=== PATIENT | male | born 1950 | race Caucasian/White ===

== ENCOUNTER 2017-05-06 11:31 | Emergency (ER) | payer MEDICARE, BC ==
[2017-05-06] MEDS ORDERED: KETOROLAC TROMETHAMINE 60 MG/2 ML VIAL IM ONE ×2 (12:28→12:33)
[2017-05-06] MEDS ORDERED: ORPHENADRINE CITRATE 30 MG/ML VIAL IM ONE (12:28)
--- NOTE | 2017-05-06 12:29 | ERNOTE ---
Back Pain ER HPI Date of Service: 05/06/17 Presenting Symptoms: injury/pain to back Time Seen by Provider: 05/06/17 12:14 Source: patient, family, RN notes reviewed Exam Limitations: no limitations Immunizations: IMMUNIZATION HX Immunizations Up to Date Yes History of Influenza Vaccine No Hx Pneumococcal Vaccination No Allergies/Adverse Reactions: Allergies No Known Allergies Allergy (Verified 05/06/17 12:02) Home Medications: HOME MEDICATIONS Aspirin 81 mg PO DAILY 05/06/17 [Last Taken Unknown] Atorvastatin Calcium [Lipitor] 40 mg PO HS 05/06/17 [Last Taken Unknown] Cyclobenzaprine HCl [Flexeril] 10 mg PO TID 05/06/17 [Last Taken Unknown] Esomeprazole Magnesium [Nexium] 20 mg PO DAILY 05/06/17 [Last Taken Unknown] HYDROcodone/ACETAMINOPHEN [[place] 5-325] 1 tab PO Q6H PRN 05/06/17 [Last Taken Unknown] Ramipril [[place]] 5 mg PO DAILY 05/06/17 [Last Taken Unknown] Sitagliptin Phos/Metformin HCl [Janumet 50-1,000 mg Tablet] 2 each PO DAILY 11/21 [Last Taken Unknown] oxyCODONE HCL/ACETAMINOPHEN [Oxycodone-Acetaminophen 5-325] 1 - 2 each PO Q6H PRN #30 tablet 05/06/17 [Last Taken Unknown] predniSONE [Prednisone] 2 tab PO DAILY #14 tab 05/06/17 [Last Taken Unknown] Narrative: 67 y/o male ambulatory to the ED with his for right low back pain that began 4 days ago. There was no injury or precipitating event. He has had similar episodes of pain in the same region several times over the past few years, but none have been this severe. He has been taking Flexeril and [place] without relief. He does not have a local PCP as he resides in [place] most of the year. Date (Duration): 05/02/17 Timing: Reports: constant Quality/Severity: Reports: severe, burning, stabbing Location of pain: Reports: lower back, no radiation Activities at Onset: Reports: none Recent Injury?: Reports: no Modifying Factors - (Improves): Reports: nothing Modifying Factors - (Worsens): Reports: nothing Associated Symptoms: Denies: fever/chills, sweating, nausea/vomiting, problems urinating, difficulty walking, lightheadedness, numbess/weakness in legs Prior Treament: Reports: similar symptoms before. Denies: recently seen Review of Systems - Review of Systems Constitutional: Absent: recent illness, fever, chills EYE: Present: no symptoms reported ENT: Present: no symptoms reported Respiratory: Absent: shortness of breath, cough Cardiology: Absent: chest pain, edema Gastrointestinal/Abdominal: Present: nausea. Absent: vomiting, diarrhea, constipation, abdominal pain Genitourinary: Absent: dysuria, hematuria Musculoskeletal: Present: back pain. Absent: neck pain, joint pain, joint swelling Skin: Absent: rash, lesions, change in color Neurological: Absent: headache, dizziness/light-headedness, weakness, numbness, tingling Endocrine: Present: no symptoms reported Hematologic/Lymphatic: Present: no symptoms reported Psych: Present: no symptoms reported - Patient's Past Medical History Patient History - Medical: Diabetes Type 2, GERD Patient History - Cardiac/Respiratory: Hypertension, Hyperlipidemia Patient History - Cancer: No Hx of Cancer Patient History - Surgical Procedures: Noncontributory Patient History - Other: None - Social History Living Situations: spouse Abuse History: No History of abuse Psych History: No pertinent hx Smoking Status: Former smoker Alcohol Use: occasionally Drug Use: none - Immunizations Immunizations Up to Date: Yes Hx Pneumococcal Vaccination: No History of Influenza Vaccine: No Physical Exam - Physical Exam General Appearance: Present: wd/wn, alert, mild distress, other - Appears uncomfortable Head Exam: Present: normal inspection, no evidence of injury Eye Exam: Normal inspection: bilateral Neck: Present: normal inspection, nontender, supple, full range of motion Respiratory: Present: no respiratory distress, normal breath sounds, no accessory muscle use, lungs clear Cardiovascular/Chest: Present: regular rate, rhythm, no murmur, normal peripheral pulses Gastrointestinal/Abdominal: Present: normal bowel sounds, nontender, nondistended, soft Back Exam: Present: no CVA tenderness, no vertebral tenderness, decreased range of motion, other - Right lateral paraspinal lumbar muscle tenderness with palpation Extremity Exam: Present: normal inspection, normal range of motion, no edema, other - Normal strength against resistance in lower extremities Neurological Exam: Present: alert, oriented, normal mood/affect, no motor/ sensory deficits DTR: N=norm/NB=norm/brisk/A=abs/DD=dull/dimin/HC=hyperactive: Knee (R): Normal, Knee (L): Normal Skin Exam: Present: normal color, warm/dry ED Progress - Results and Orders Patient's Lab Results:: I have reviewed the patient's lab results. - Vital Signs Patient's Vital Signs:: I have reviewed the patient's vital signs. Vital Signs: Vital Signs 05/06/17 11:55 Temperature 36.9 C Pulse Rate 78 Respiratory 16 Rate Blood Pressure 140/82 O2 Sat by Pulse 95 Oximetry - X-Ray X-Ray #1 X-Ray: lumbosacral Interpretation: Reviewed by me X-ray Comments: Technique: AP, lateral, bilateral oblique, and lumbosacral spot view obtained. Comparison: 08/04/2006 Findings: There is a mild dextroscoliosis. There is disc space narrowing L2-L3 less so L1-L2 and L3 -L4 or. This is progressed in the interval. There are endplate arthritic changes L2-L3 progressed in the interval. No lumbar spine fractures identified. There is a T11 compression deformity. There are facet arthritic changes. There are vascular calcifications. IMPRESSION: MODERATE LUMBAR SPONDYLOSIS PROGRESSED IN THE INTERVAL. Electronically signed by Kian Trammell M.D.. Kian Trammell MD Dict: 05/06/17 1308 Typed: 05/06/17 1308/ - Progress/Reassessment Chief Complaint: Back Pain Progress:: Improved Departure Clinical Impression: Lumbar spondylosis - Departure Disposition: Home Follow Up Needed Condition: Stable Instructions: Back Pain, Adult Additional Instructions: Start prednisone tomorrow - take in the mornings with food Pain medication will cause constipation - you may need a laxative You can take Tylenol in place of Percocet Consider contacting a back specialist if you have not improved in the next few days [facility] [phone] for appointments Prescriptions: oxyCODONE HCL/ACETAMINOPHEN [Oxycodone-Acetaminophen 5-325] 1 - 2 each PO Q6H PRN #30 tablet PRN Reason: Pain predniSONE [Prednisone] 2 tab PO DAILY #14 tab
[2017-05-06] MEDS ORDERED: ORPHENADRINE CITRATE 30 MG/ML VIAL ONE (12:33)
[2017-05-06 12:45] LABS: Hematocrit 40.2 % (42.0-52.0); Hemoglobin 13.7 gm/dL (13.5-18.0); Mean Cell Volume 87.2 fl (78-100); Mean Corpuscular Hemoglobin 29.7 pg (27-31); Mean Corpuscular Hgb Conc 34.1 g/dl (32-36); Neutrophil # 4.6 K/mm3 (1.3-6.0); Neutrophil % 63.1 % (42-75.0); Platelet Count 207 K/mm3 (150-450); Red Blood Count 4.61 M/mm3 (4.7-6.0); Red Cell Distribution Width 12.1 % (11.5-14.0); White Blood Count 7.4 K/mm3 (4.0-10.5)
[2017-05-06 12:59] LABS: ALT 23 U/L (19-67); AST 16 U/L (0-48); Albumin * 3.9 gm/dl (3.4-5.0); Alkaline Phosphatase * 70 U/L (50-170); Anion Gap 11.2 mmol/L (6.8-13.8); BUN/Creatinine Ratio 11.1 (9.0-21.6); Bilirubin, Total 1.3 mg/dL (0.0-1.1); Blood Urea Nitrogen 10 mg/dL (6-23); Ca. Corrected For Albumin 8.7 mg/dL (8.4-10.2); Calcium * 8.9 mg/dL (7.9-10.9); Carbon Dioxide 28.8 mmol/L (24-32.6); Chloride 105 mmol/L (97-106); Glucose * 87 mg/dL (70-110); Sodium 141 mmol/L (132-142); Total Protein 7.4 gm/dL (6.2-8.2)
[2017-05-06 13:01] LABS: Urine Bilirubin Negative (NEGATIVE); Urine Blood Negative /ul (NEGATIVE); Urine Ketone Negative (NEGATIVE); Urine Nitrite Negative (NEGATIVE); Urine Protein Negative (NEGATIVE); Urine Specific Gravity <=1.005 SP.GR. (1.005-1.030); Urine Urobilinogen Normal (NORMAL); Urine pH 5.5 pH (5.0-7.0)
[2017-05-06 13:02] LABS: Urine Appearance Clear; Urine Bacteria None Seen; Urine Color Pale Yellow; Urine RBC None Seen /hpf (0-5); Urine WBC None Seen /hpf (0-5)
[2017-05-06] MEDS ORDERED: oxyCODONE HCL/ACETAMINOPHEN 1 TAB TABLET ONE (13:08)
[2017-05-06] MEDS ORDERED: oxyCODONE HCL/ACETAMINOPHEN 1 TAB TABLET PO ONE (13:10)
[2017-05-06] MEDS ORDERED: METHYLPREDNISOLONE SOD SUCC/PF 125 MG/2 ML VIAL IM ONE (13:36)
[2017-05-06] MEDS ORDERED: METHYLPREDNISOLONE SOD SUCC/PF 125 MG/2 ML VIAL ONE (13:51)
[2017-05-06 14:10] VITALS: BP 133/70
== END 2017-05-06 14:12 | disposition home or self-care (01) ==
LOC: ER 11:31
DX: M47.896 Other spondylosis, lumbar region (principal); E11.9 Type 2 diabetes mellitus without complications; K21.9 Gastro-esophageal reflux disease without esophagitis; I10 Essential (primary) hypertension; E78.5 Hyperlipidemia, unspecified